=== PATIENT | male | born 1960 | race Caucasian/White ===

== ENCOUNTER → 2022-11-16 11:06 | Outpatient (CLI) | payer MEDICARE, SELFPAY ==
--- NOTE | 2022-11-16 11:06 | MR_ITS ---
FINAL REPORT CLINICAL HISTORY: back pain X YRS. LEFT LEG PAIN TO KNEE. NO RECENT INJURY OR TRAUMA FINDINGS: Multiplanar MR imaging of the lumbar spine was performed without contrast. On the sagittal T2-weighted images, disc degeneration is seen at multiple levels. The vertebral alignment is normal. There is no evidence of fracture. No bony mass is identified. The conus is seen at approximately the L1 level and has an unremarkable appearance. T11-12: Annular disc bulge without significant central canal stenosis or neural foraminal narrowing. T12-L1: No significant central canal stenosis or neural foraminal narrowing. L1-2: Annular disc bulge with facet arthropathy and osteophytes. There is mild left neural foraminal narrowing. L2-3: Annular disc bulge with facet arthropathy and osteophytes. There is mild bilateral neural foraminal narrowing. L3-4: Annular disc bulge with moderate bilateral neural foraminal narrowing. L4-5: Annular disc bulge with right foraminal annular tear. There is moderate right and mild left neural foraminal narrowing. L5-S1: There is no significant canal stenosis or neural foraminal narrowing. IMPRESSION: Multilevel degenerative disc disease mild to moderate neural foraminal narrowing. Right foraminal annular tear at L4-5. Reviewed, Interpreted and Dictated by Jose Rafael Bonds III, MD Transcribed by Marli Johnson Authenticated and [facility]
== END ==
LOC: RAD 11:06
PROVIDERS: PCP Emergency Medicine; Visit Provider Emergency Medicine
DX: M54.9 Dorsalgia, unspecified (principal); M54.50 Low back pain, unspecified
CPT/HCPCS: 72148; 76376

== ENCOUNTER → 2022-12-04 23:20 | Outpatient (CLI) | payer MEDICARE, SELFPAY ==
[2022-12-04 18:11] LABS: Basophils # 0.1 K/mm3 (0-0.2); Basophils % 0.4 % (0.1-2.0); Eosinophils # 0.2 K/mm3 (0.0-0.4); Eosinophils % 1.2 % (0.1-12.0); Hematocrit 49.2 % (42.0-52.0); Hemoglobin 15.9 g/dL (14.1-18.0); Lymphocytes # 5.2 K/mm3 (0.7-4.5); Lymphocytes % 29.1 % (10-50); Mean Corpuscular HGB Conc 32.2 g/dL (31.8-35.4); Mean Corpuscular Hemoglobin 30.7 pg (27.0-31.2); Mean Corpuscular Volume 95.2 fl (80-94); Mean Platelet Volume 9.7 fl (7.4-10.4); Monocytes % 5.3 % (1.7-9.3); Neutrophils # 11.4 K/mm3 (1.8-7.8); Platelet Count 329 K/mm3 (142-424); Red Blood Count 5.17 M/mm3 (4.60-6.20); Red Cell Distribution Width 14.2 % (11.5-17.5); White Blood Count 17.8 K/mm3 (4.8-10.8)
[2022-12-04 18:13] LABS: MANUAL DIFFERENTIAL MANUAL DIFFERENTIAL (MANUAL DIFF)
[2022-12-04 18:32] LABS: Alanine Aminotransferase 28 U/L (12-78); Albumin Level 4.2 g/dl (3.5-5.0); Albumin/Globulin Ratio 1.3 (1.1-1.8); Alkaline Phosphatase 87 U/L (38-126); Aspartate Amino Transferase 44 U/L (17-59); Bilirubin,Total 0.7 mg/dl (0.2-1.3); Blood Urea Nitrogen 16 mg/dl (9-20); Calcium 9.2 mg/dl (8.4-10.2); Carbon Dioxide 23 mmol/L (22.0-30.0); Chloride 102 mmol/L (98-107); Chol/HDL Ratio 5.4 (1-3.5); Cholesterol 215 mg/dl (140-200); Estimated Glomerular Filt Rate 98 ml/min (>60); GFR (African American) 119 ML/MIN (>60); Globulin 3.2 g/dL (1.3-3.2); Glucose 123 mg/dl (74-100); HDL Cholesterol 40 mg/dl (40-60); Sodium 139 mmol/L (136-145); Total Protein,Serum 7.4 g/dl (6.3-8.2); Triglycerides 192 mg/dl (30-150); VLDL Cholesterol 38 mg/dL (0-40)
[2022-12-04 18:37] LABS: Amphetamine/Metha Screen,Urine Negative ng/ml (<1000); Barbiturates Screen,Urine Negative ng/ml (<200)
[2022-12-04 18:38] LABS: Benzodiazepines Screen,Urine Negative ng/ml (<200)
[2022-12-04 18:39] LABS: Cannabinoid Screen,Urine Negative ng/ml (<50); Cocaine Screen,Urine Negative ng/ml (<300)
[2022-12-04 18:40] LABS: Methadone Screen,Urine Negative ng/ml (<300); Opiate Screen,Urine Negative ng/ml (<300)
[2022-12-04 18:41] LABS: Phencyclidine Screen,Urine Negative ng/ml (<25)
[2022-12-04 18:44] LABS: Direct LDL Cholesterol 127.91 mg/dL (100-129)
[2022-12-04 18:50] LABS: 25-OH Vitamin D, Total 19.3 ng/mL (30-100)
[2022-12-04 19:04] LABS: Prostate Specific Ag Screen 0.6 ng/ml (0.0-4.0); Thyroid Stimulating Hormone 3.83 uIU/mL (0.465-4.68)
[2022-12-04 19:38] LABS: Eosinophils % 2 % (0-3); Lymphocytes % 27 % (10-50); Monocytes % 4 % (2-9); Neutrophils % 67 % (42-76); Platelet Estimate Normal; RBC Morphology Normal; Total Cells Counted 100
[2022-12-05 14:01] LABS: T4 (Thyroxine) 7.1 ug/dl (5.53-11.0)
== END ==
PROVIDERS: PCP Emergency Medicine; Visit Provider Emergency Medicine
DX: M54.16 Radiculopathy, lumbar region (principal); I10 Essential (primary) hypertension; Z12.5 Encounter for screening for malignant neoplasm of prostate; E55.9 Vitamin D deficiency, unspecified
CPT/HCPCS: 80053; 80061; 80305; 82306; 84436; 84443; 85007; 85025; G0103

== ENCOUNTER → 2022-12-17 09:30 | Outpatient (POV) | payer MEDICARE, SELFPAY ==
[2022-12-17 09:50] VITALS: BP 175/99; PULSE 99; RESP 18; O2SAT 96; BMI 29.9
--- NOTE | 2022-12-17 09:55 | EXP.PAIN.OV ---
HPI Data of Consult Patient: new to practice Consult date: 12/17/22 Requesting Physician: Erica Holt APRN Primary Care Provider: Carlos Will MD Consult Narrative Reason for consult: Low back pain History of present illness: Mr. Avendano is a 62 year old male who presents today as a new patient. He is a referral from Dr. Will's office. Today he rates his pain an 8 out of 10. Patient states his pain is all in his low back with radiating symptoms to his left leg. He states this pain has been going on for at least 12 to 13 years and progressively worsened over time. Patient denies any specific injury or trauma that initially led to his symptoms. He does describe this as a aching, throbbing sensation that is worse with increased activity. He does have some numbness and tingling into his left leg. Patient does state the pain interferes with his ability perform activities of daily living such as cooking and cleaning. Patient has tried [id number] medications such as Tylenol and ibuprofen along with heat and ice and topicals with minimal relief. Patient has been to physical therapy multiple times however this made his symptoms worse. Patient has also had chiropractor therapy and states that during the actual visits it did help however immediately after he would have worsening pain. Patient denies any previous surgery. He does state that walking seems to aggravate his symptoms. He does also state that in the past he has had injective therapy however he did not notice significant relief. Patient is currently managed with gabapentin 800 mg 4 times a day and Percocet 10 mg 4 times [address] Dr[address] Will's office. Patient denies any side effects from these medications. He does state these medications do help manage some of his pain symptoms. His Danny is [phone]. Its been reviewed and appropriate. CC: Erica Holt APRN [facility] Disclaimer: The information contained in this section may have been updated after the patient was seen, as this information can be updated by other users. Medical History (Updated 12/17/22 @ 10:30 by Erica Holt APRN) Anxiety Hypertension Social History (Updated 11/05/22 @ 13:55 by NERIS Lima) Smoking Status: Current every day smoker alcohol intake: never substance use type: denies use current occupational status: unemployed and disabled Travel in the last 8 weeks: None Review of Systems Review of Systems Review of systems:: pertinent systems reviewed and negative unless documented below Review of systems (narrative): Review of Systems: General: No recent weight changes, no fever, no sleep disturbances Respiratory: No cough, no shortness of air, no recurring pulmonary infections Cardiovascular/peripheral vascular: No chest pain, no palpitations, no edema, no shortness of breath Gastrointestinal: No new onset incontinence, normal bowel movements reported Genitourinary: No new onset incontinence Musculoskeletal: Low back pain, left leg pain Psychiatric: [Normal mood/affect] Neurological: [Denies weakness in extremities], [denies balance issues] Meds Home Medications and Allergies Home Medications Medication Instructions Recorded Confirmed Type atenolol 50 mg tablet See Rx Instructions .Route 11/30/22 12/04/22 Rx .COMPLEX #90 tabs lisinopril 40 mg tablet See Rx Instructions .Route 11/30/22 12/04/22 Rx .COMPLEX #90 tabs gabapentin 800 mg tablet 800 mg PO QID #120 tabs 12/04/22 12/04/22 Rx oxycodone-acetaminophen 10 mg-325 1 tab PO QID #120 tabs 12/04/22 12/04/22 Rx mg tablet (Percocet) cholecalciferol (vitamin D3) 1,250 1,250 mcg PO WEEKLY #5 caps 12/06/22 Rx mcg (50,000 unit) capsule New Prescriptions to Start Prescriptions: Allergies Allergy/AdvReac Type Severity Reaction Status Date / Time No Known Allergies Allergy Verified 12/04/22 13:02 Objective Narrative: Physical Exam: General: Alert and oriented x3, no
== END ==
LOC: SC.PAIN 09:31
PROVIDERS: PCP Emergency Medicine; Visit Provider Nurse Practitioner Family
DX: M54.50 Low back pain, unspecified; G89.4 Chronic pain syndrome; M51.16 Intervertebral disc disorders with radiculopathy, lumbar region; M47.26 Other spondylosis with radiculopathy, lumbar region
CPT/HCPCS: 99202; G0463

== ENCOUNTER → 2023-03-29 09:27 | Outpatient (CLI) | payer MEDICARE, SELFPAY ==
[2023-03-29 19:11] LABS: Amphetamine/Metha Screen,Urine Negative ng/ml (<1000); Barbiturates Screen,Urine Negative ng/ml (<200)
[2023-03-29 19:12] LABS: Benzodiazepines Screen,Urine Negative ng/ml (<200)
[2023-03-29 19:13] LABS: Cannabinoid Screen,Urine Negative ng/ml (<50); Cocaine Screen,Urine Negative ng/ml (<300)
[2023-03-29 19:14] LABS: Methadone Screen,Urine Negative ng/ml (<300)
[2023-03-29 19:15] LABS: Opiate Screen,Urine Positive ng/ml (<300); Phencyclidine Screen,Urine Negative ng/ml (<25)
== END ==
PROVIDERS: PCP Emergency Medicine; Visit Provider Emergency Medicine
DX: M47.816 Spondylosis without myelopathy or radiculopathy, lumbar region (principal)
CPT/HCPCS: 80305

== ENCOUNTER → 2023-05-28 23:00 | Outpatient (CLI) | payer MEDICARE, SELFPAY ==
[2023-05-28 19:07] LABS: Chol/HDL Ratio 9.2 (1-3.5); Cholesterol 238 mg/dl (140-200); HDL Cholesterol 26 mg/dl (40-60); Triglycerides 206 mg/dl (30-150); VLDL Cholesterol 41 mg/dL (0-40)
[2023-05-28 19:22] LABS: Direct LDL Cholesterol 154.95 mg/dL (100-129)
[2023-05-28 19:41] LABS: Barbiturates Screen,Urine Negative ng/ml (<200)
[2023-05-28 19:42] LABS: Cocaine Screen,Urine Negative ng/ml (<300)
[2023-05-28 19:43] LABS: Methadone Screen,Urine Negative ng/ml (<300); Opiate Screen,Urine Positive ng/ml (<300)
[2023-05-28 19:44] LABS: Phencyclidine Screen,Urine Negative ng/ml (<25)
[2023-05-28 19:47] LABS: Amphetamine/Metha Screen,Urine Negative ng/ml (<1000); Microalbumin < 6.000 mg/L (0-16.7)
[2023-05-28 19:49] LABS: Creatinine,Urine Random 146 mg/dL (Not Estab.)
[2023-05-28 19:50] LABS: Benzodiazepines Screen,Urine Negative ng/ml (<200)
[2023-05-28 19:51] LABS: Cannabinoid Screen,Urine Negative ng/ml (<50)
== END ==
PROVIDERS: PCP Internal Medicine; Visit Provider Internal Medicine
DX: M47.816 Spondylosis without myelopathy or radiculopathy, lumbar region (principal); Z79.899 Other long term (current) drug therapy
CPT/HCPCS: 80061; 80305; 82043; 82570

== ENCOUNTER 2023-07-31 22:03 | Outpatient (CLI) | payer MEDICARE, SELFPAY ==
[2023-07-31 19:15] LABS: Basophils # 0.1 K/mm3 (0-0.2); Basophils % 0.9 % (0.1-2.0); Eosinophils # 0.2 K/mm3 (0.0-0.4); Eosinophils % 1.5 % (0.1-12.0); Hematocrit 45.8 % (42.0-52.0); Hemoglobin 15.7 g/dL (14.1-18.0); Mean Corpuscular HGB Conc 34.2 g/dL (31.8-35.4); Mean Corpuscular Hemoglobin 32.9 pg (27.0-31.2); Mean Platelet Volume 9.8 fl (7.4-10.4); Monocytes # 0.5 K/mm3 (0.1-1.0); Monocytes % 4.6 % (1.7-9.3); Neutrophils # 5.7 K/mm3 (1.8-7.8); Neutrophils % 54.9 % (37.0-80.0); Platelet Count 248 K/mm3 (142-424); Red Blood Count 4.78 M/mm3 (4.60-6.20); Red Cell Distribution Width 13.8 % (11.5-17.5); White Blood Count 10.4 K/mm3 (4.8-10.8)
[2023-07-31 19:54] LABS: Cholesterol 191 mg/dl (140-200); HDL Cholesterol 32 mg/dl (40-60); Triglycerides 135 mg/dl (30-150); VLDL Cholesterol 27 mg/dL (0-40)
[2023-07-31 20:05] LABS: Direct LDL Cholesterol 127.85 mg/dL (100-129)
[2023-07-31 21:22] LABS: Hemoglobin A1C 5.4 % (4.0-6.0)
[2023-07-31 21:45] LABS: Creatinine,Urine Random 146 mg/dL (Not Estab.)
[2023-07-31 21:46] LABS: Microalbumin/Creatinine Ratio 4.6
== END 2023-07-31 23:59 ==
LOC: LAB.DROPOF 22:04
PROVIDERS: PCP Internal Medicine; Visit Provider Internal Medicine
DX: E78.5 Hyperlipidemia, unspecified (principal); R53.83 Other fatigue; E11.9 Type 2 diabetes mellitus without complications
CPT/HCPCS: 80061; 82043; 82570; 83036; 85025

== ENCOUNTER 2023-10-22 13:34 | Outpatient (CLI) | payer MEDICARE, SELFPAY ==
[2023-10-22 18:48] LABS: Basophils # 0.1 K/mm3 (0-0.2); Basophils % 0.9 % (0.1-2.0); Eosinophils # 0.1 K/mm3 (0.0-0.4); Eosinophils % 0.6 % (0.1-12.0); Hematocrit 49.1 % (42.0-52.0); Hemoglobin 16.2 g/dL (14.1-18.0); Lymphocytes # 3.1 K/mm3 (0.7-4.5); Lymphocytes % 27.8 % (10-50); Mean Corpuscular HGB Conc 33.1 g/dL (31.8-35.4); Mean Corpuscular Hemoglobin 31.8 pg (27.0-31.2); Mean Corpuscular Volume 96.2 fl (80-94); Mean Platelet Volume 10.1 fl (7.4-10.4); Monocytes # 0.4 K/mm3 (0.1-1.0); Monocytes % 3.9 % (1.7-9.3); Neutrophils # 7.4 K/mm3 (1.8-7.8); Neutrophils % 66.8 % (37.0-80.0); Platelet Count 364 K/mm3 (142-424); Red Blood Count 5.11 M/mm3 (4.60-6.20); Red Cell Distribution Width 14.4 % (11.5-17.5); White Blood Count 11.1 K/mm3 (4.8-10.8)
[2023-10-22 19:12] LABS: Chloride 106 mmol/L (98-107); Potassium 4.8 mmoL/L (3.5-5.1); Sodium 138 mmol/L (136-145)
[2023-10-22 19:15] LABS: Alanine Aminotransferase 17 U/L (12-78); Albumin Level 4.2 g/dl (3.5-5.0); Albumin/Globulin Ratio 1.3 (1.1-1.8); Alkaline Phosphatase 105 U/L (38-126); Anion Gap 10.8 mEq/L (5-15); Aspartate Amino Transferase 27 U/L (17-59); Bilirubin,Total 0.8 mg/dl (0.2-1.3); Blood Urea Nitrogen 14 mg/dl (9-20); Carbon Dioxide 26 mmol/L (22.0-30.0); Estimated Glomerular Filt Rate 86 ml/min (>60); GFR (African American) 103 ML/MIN (>60); Globulin 3.2 g/dL (1.3-3.2); Glucose 121 mg/dl (74-100); Total Protein,Serum 7.4 g/dl (6.3-8.2)
[2023-10-22 20:13] LABS: 25-OH Vitamin D, Total 14.6 ng/mL (30-100)
== END 2023-10-22 23:59 | disposition home or self-care (01) ==
LOC: LAB.DROPOF 10-23 14:10
PROVIDERS: PCP Internal Medicine; Visit Provider Internal Medicine
DX: R53.83 Other fatigue (principal); E55.9 Vitamin D deficiency, unspecified
CPT/HCPCS: 80053; 82306; 85025

== ENCOUNTER 2024-01-17 09:42 | Outpatient (CLI) | payer MEDICARE, SELFPAY ==
[2024-01-28 22:08] LABS: 1,25 Dihydroxy Vitamin D 28 pg/mL (.); 1,25-Dihydroxy, Vitamin D-2 <10 pg/mL (.); 1,25-Dihydroxy, Vitamin D-3 20 pg/mL (.)
== END 2024-01-17 23:59 | disposition home or self-care (01) ==
LOC: LAB.DROPOF 09:44
PROVIDERS: PCP Internal Medicine; Visit Provider Internal Medicine
DX: E55.9 Vitamin D deficiency, unspecified (principal)
CPT/HCPCS: 82652

== ENCOUNTER 2024-03-03 13:41 | Outpatient (CLI) | payer MEDICARE, SELFPAY ==
[2024-03-03 20:12] LABS: Thyroid Stimulating Hormone 2.59 uIU/mL (0.465-4.68)
[2024-03-04 08:56] LABS: HIV (1&2) Antibody Rapid NONREACTIVE (NONREACTIVE)
[2024-03-05 11:18] LABS: HBsAg Screen Negative (Negative); HCV Ab Non Reactive (Non Reactive); Hep A Ab, IGM Negative (Negative); Hep B Core Ab, IgM Negative (Negative)
== END 2024-03-03 23:59 | disposition home or self-care (01) ==
LOC: LAB.DROPOF 03-04 13:41
PROVIDERS: PCP Internal Medicine; Visit Provider Internal Medicine
DX: E55.9 Vitamin D deficiency, unspecified (principal); K74.60 Unspecified cirrhosis of liver; Z11.59 Encounter for screening for other viral diseases; E78.5 Hyperlipidemia, unspecified
CPT/HCPCS: 80074; 82306; 84443; 86803; 87389

== ENCOUNTER 2024-04-27 11:25 | Outpatient (CLI) | payer MEDICARE, SELFPAY ==
[2024-04-27 19:09] LABS: Chol/HDL Ratio 4.8 (1-3.5); Cholesterol 168 mg/dl (140-200); HDL Cholesterol 35 mg/dl (40-60); Triglycerides 127 mg/dl (30-150); VLDL Cholesterol 25 mg/dL (0-40)
[2024-04-27 19:12] LABS: 25-OH Vitamin D, Total 14.1 ng/mL (30-100)
[2024-04-27 19:21] LABS: Direct LDL Cholesterol 106.86 mg/dL (100-129)
== END 2024-04-27 23:59 | disposition home or self-care (01) ==
LOC: LAB.DROPOF 04-28 12:10
PROVIDERS: PCP Internal Medicine; Visit Provider Internal Medicine
DX: E55.9 Vitamin D deficiency, unspecified (principal); E78.5 Hyperlipidemia, unspecified
CPT/HCPCS: 80061; 82306

== ENCOUNTER 2024-06-25 11:20 | Outpatient (CLI) | payer MEDICARE, SELFPAY ==
[2024-06-25 19:13] LABS: Chol/HDL Ratio 4.3 (1-3.5); Cholesterol 133 mg/dl (140-200); HDL Cholesterol 31 mg/dl (40-60); Triglycerides 78 mg/dl (30-150); VLDL Cholesterol 16 mg/dL (0-40)
== END 2024-06-25 23:59 | disposition home or self-care (01) ==
LOC: LAB.DROPOF 06-27 08:35
PROVIDERS: PCP Internal Medicine; Visit Provider Internal Medicine
DX: E78.5 Hyperlipidemia, unspecified (principal)
CPT/HCPCS: 80061

== ENCOUNTER 2024-07-23 10:50 | Outpatient (CLI) | payer MEDICARE, SELFPAY ==
[2024-07-23 19:29] LABS: Prostate Specific Ag Screen 0.8 ng/ml (0.0-4.0)
[2024-07-24 05:38] LABS: Creatinine,Urine Random 44 mg/dL (Not Estab.); Microalbumin < 6.000 mg/L (0-16.7)
== END 2024-07-23 23:59 | disposition home or self-care (01) ==
LOC: LAB.DROPOF 07-24 14:55
PROVIDERS: PCP Internal Medicine; Visit Provider Internal Medicine
DX: Z12.5 Encounter for screening for malignant neoplasm of prostate (principal); I10 Essential (primary) hypertension; F17.200 Nicotine dependence, unspecified, uncomplicated
CPT/HCPCS: 82043; 82570; G0103

== ENCOUNTER 2024-12-31 15:10 | Outpatient (CLI) | payer MEDICARE, MEDICAID, SELFPAY ==
[2024-12-31 18:48] LABS: Hematocrit 44.9 % (42.0-52.0); Hemoglobin 15.0 g/dL (14.1-18.0); Immature Granulocytes % 0.3 %; Mean Corpuscular HGB Conc 33.4 g/dL (31.8-35.4); Mean Corpuscular Hemoglobin 30.2 pg (27.0-31.2); Mean Corpuscular Volume 90.3 fl (80-94); Nucleated Red Blood Cells % 0 %; Platelet Count 269 K/mm3 (142-424); Red Blood Count 4.97 M/mm3 (4.60-6.20); Red Cell Distribution Width-SD 46.7 fL; White Blood Count 11.5 K/mm3 (4.8-10.8)
[2024-12-31 19:26] LABS: Alanine Aminotransferase 13 U/L (12-78); Albumin Level 4.1 g/dl (3.5-5.0); Albumin/Globulin Ratio 1.5 (1.1-1.8); Alkaline Phosphatase 85 U/L (38-126); Anion Gap 12.2 mEq/L (5-15); Aspartate Amino Transferase 20 U/L (17-59); Bilirubin,Total 0.8 mg/dl (0.2-1.3); Blood Urea Nitrogen 11 mg/dl (9-20); Calcium 9.3 mg/dl (8.4-10.2); Carbon Dioxide 31 mmol/L (22.0-30.0); Chloride 99 mmol/L (98-107); Creatinine,Serum 0.80 mg/dl (0.66-1.25); Estimated Glomerular Filt Rate 98 ml/min (>60); GFR (African American) 118 ML/MIN (>60); Globulin 2.7 g/dL (1.3-3.2); Glucose 96 mg/dl (74-100); Potassium 4.2 mmoL/L (3.5-5.1); Sodium 138 mmol/L (136-145); Total Protein,Serum 6.8 g/dl (6.3-8.2)
[2024-12-31 19:51] LABS: Thyroid Stimulating Hormone 1.89 uIU/mL (0.465-4.68)
== END 2024-12-31 23:59 | disposition home or self-care (01) ==
LOC: LAB.DROPOF 01-01 13:47
PROVIDERS: PCP Family Medicine; Visit Provider Family Medicine
DX: E78.2 Mixed hyperlipidemia (principal); I10 Essential (primary) hypertension; R53.83 Other fatigue
CPT/HCPCS: 80053; 84443; 85025